=== PATIENT | male | born 1945 | race American Indian/Alaskan Native ===

== ENCOUNTER 2024-06-19 02:17 | Emergency (ER) | payer OTHER ==
[~2024-06-19] VITALS: Ht 172.7 cm; Wt 57.1 kg
[2024-06-19] MEDS ORDERED: Famotidine 20 MG Tab PO ONE (03:15)
[2024-06-19] MEDS ORDERED: PredniSONE 20 MG Tab PO ONE (03:15)
[2024-06-19] MEDS ORDERED: BENADRYL25 M1 PO (03:20)
[2024-06-19] MEDS ORDERED: FAMO20 PO (03:20)
[2024-06-19] MEDS ORDERED: PRED20 PO (03:20)
== END 2024-06-19 04:07 | disposition home or self-care (01) ==
LOC: ER 02:17
DX: L29.9 Pruritus, unspecified (principal); T46.4X5A Adverse effect of angiotensin-converting-enzyme inhibitors, initial encounter; I10 Essential (primary) hypertension; G20.A1 Parkinson's disease without dyskinesia, without mention of fluctuations; Z88.0 Allergy status to penicillin
CPT/HCPCS: 99282; A9270; J7512

== ENCOUNTER 2024-06-19 13:13 | Emergency (ER) | payer OTHER ==
[~2024-06-19] VITALS: Ht 172.7 cm; Wt 59.9 kg
[~2024-06-19 13:13] MED LIST: BENADRYL25 M1 PO; FAMO20 PO; PRED20 PO
== END 2024-06-19 16:41 | disposition home or self-care (01) ==
LOC: ER 13:13
DX: S22.32XA Fracture of one rib, left side, initial encounter for closed fracture (principal); I10 Essential (primary) hypertension; G20.A1 Parkinson's disease without dyskinesia, without mention of fluctuations; Z88.0 Allergy status to penicillin; Z79.899 Other long term (current) drug therapy; W01.198A Fall on same level from slipping, tripping and stumbling with subsequent striking against other object, initial encounter
CPT/HCPCS: 71101; 99283-25

== ENCOUNTER 2024-07-10 06:34 | Emergency (ER) | payer OTHER ==
[~2024-07-10] VITALS: Ht 175.3 cm; Wt 58.5 kg
[2024-07-10] MEDS ORDERED: Prinivil10 MG (07:37)
[2024-07-10] MEDS ORDERED: AMLODIPINE BESYL5 MG PO (07:37)
[2024-07-10] MEDS ORDERED: CARBIDOPA-LEVO1 EA17 PO (07:37)
== END 2024-07-10 07:38 | disposition home or self-care (01) ==
LOC: ER 06:34
DX: R25.1 Tremor, unspecified (principal); T46.1X5A Adverse effect of calcium-channel blockers, initial encounter; Z88.0 Allergy status to penicillin; Z79.899 Other long term (current) drug therapy; I10 Essential (primary) hypertension; K21.9 Gastro-esophageal reflux disease without esophagitis
CPT/HCPCS: 99282